=== PATIENT | female | born 1970 | race Caucasian/White ===

== ENCOUNTER 2023-06-23 06:15 | Inpatient (IN) | payer OTHER, SELFPAY ==
[2023-06-18 08:01] VITALS: BMI 26.9
[2023-06-18 08:44] LABS: Hemoglobin 13.2 g/dL (12.0-16.0); Mean Corp Hgb Conc. 34.7 g/dL (33.0-37.0); Mean Corpuscular Hgb 32.9 pg (27.0-31.0); Mean Corpuscular Volume 94.8 fL (81.0-99.0); Mean Platelet Volume 8.9 fL (7.4-10.4); Platelet Count 249 10^3/uL (130-400); Red Blood Cell Count 4.01 10^6/uL (4.20-5.40); Red Cell Dist. Width 12.1 % (11.5-14.5); White Blood Cell Count 4.4 10^3/uL (4.8-10.8)
[2023-06-18 08:51] LABS: Glycohemoglobin (HgbA1c) 5.6 % (4.0-5.6); INR 0.92; PT 12.4 Sec (11.4-14.6)
[2023-06-18 09:04] LABS: ALT (SGPT) 12 U/L (0-35); AST (SGOT) 20 U/L (14-36); Albumin 4.1 g/dl (3.5-5.0); Alkaline Phosphatase 77 U/L (38-126); Blood Urea Nitrogen 17 mg/dl (7-17); Calcium 9.4 mg/dl (8.4-10.2); Carbon Dioxide 29 mmol/L (22-30); Chloride 101 mmol/L (98-107); Estimated Creatinine Clearance 82 ml/min; Glucose 85 mg/dl (70-99); Sodium 140 mmol/L (135-145); Total Bilirubin 0.5 mg/dl (0.2-1.3); Total Protein 6.5 g/dl (6.3-8.2); eGFR > 60.00
[2023-06-23] VITALS (15 sets, daily range): BP systolic 90–112; BP diastolic 54–74; BMI 26.9
[2023-06-23] MEDS: NORMOSOL-R 1000 IV ×3 (06:49→22:01)
[2023-06-23] MEDS: ENTEREG 12 MG PO (06:49)
[2023-06-23] MEDS: HEPARIN 5000 UNITS SC (06:49)
[2023-06-23] MEDS: TYLENOL 1000 MG PO (06:49)
--- NOTE | 2023-06-23 11:36 | W.IMMPOSTOP ---
Surgical Immed Post Op Note
-
Primary Surgeon: Danny Christianson MD
Flocculator Operator: DANIA Gallego
Pre-op Diagnosis: Recurrent sigmoid diverticulitis and right ovarian cyst
Post-op Diagnosis: Same
Procedure Performed: Robotic sigmoid resection, takedown of splenic flexure and intracorporeal anastomosis
Robotic hysterectomy and BSO by Dr. Fang
Anesthesia Type: GET
Specimen / Cultures: Sigmoid colon (suture is proximal)
Uterus and ovaries
Estimated Blood Loss: 20 cc from my portion
Complications: None
Operative Findings: Large right ovarian cyst
Short segment of chronic diverticulitis in the proximal sigmoid/distal descending colon
28mm EEA
Normal leak test
Patient's family updated.
[2023-06-23] MEDS: DILAUDID 0.5 MG IV (12:08)
[2023-06-23] MEDS: TRANEXAMIC ACID 100 IV (12:40)
[2023-06-23] MEDS: TORADOL 15 MG IV ×3 (12:44→23:53)
[2023-06-23] MEDS: TYLENOL PO (14:32)
--- NOTE | 2023-06-23 15:20 | PTCARENOTE ---
Received patient from PACU around 1320 via bed in stable condition. 5 lap sites on abdomen with surgical adhesive [employer]AIL [employer]ERK. Ecchymosis around RLQ site. No drainage. VS stable. Thigh high SCDs and TEDS on. Patient oriented to room. Call dennis in place.
[2023-06-23] MEDS: TYLENOL 650 MG PO ×3 (16:04→23:53)
[2023-06-24] MEDS: TYLENOL PO ×2 (04:00→20:21)
[2023-06-24 04:11] VITALS: BP 103/61
[2023-06-24] MEDS: TORADOL 15 MG IV ×3 (05:39→18:29)
[2023-06-24 06:00] VITALS: BMI 26.9
[2023-06-24 06:14] LABS: % Basophils 0.1 % (0-2); % Immature Granulocytes 0.3 % (0-0.5); % Lymphocytes 10.9 % (20.5-51.1); % Monocytes 8.1 % (1.7-9.3); % Neutrophils 80.6 % (42.2-75.2); Absolute Lymphocytes 0.8 10^3/uL (1.2-3.4); Absolute Monocytes 0.6 10^3/uL (0.1-0.6); Absolute Neutrophils 5.7 10^3/uL (1.4-6.5); Hematocrit 30.8 % (37.0-47.0); Mean Corp Hgb Conc. 35.7 g/dL (33.0-37.0); Mean Corpuscular Hgb 33.7 pg (27.0-31.0); Mean Corpuscular Volume 94.5 fL (81.0-99.0); Mean Platelet Volume 8.8 fL (7.4-10.4); Nucleated Red Blood Cells % 0 %; Platelet Count 222 10^3/uL (130-400); Red Blood Cell Count 3.26 10^6/uL (4.20-5.40); Red Cell Dist. Width 11.8 % (11.5-14.5); White Blood Cell Count 7.1 10^3/uL (4.8-10.8)
[2023-06-24 06:35] LABS: Blood Urea Nitrogen 11 mg/dl (7-17); Carbon Dioxide 24 mmol/L (22-30); Chloride 105 mmol/L (98-107); Estimated Creatinine Clearance 82 ml/min; Glucose 81 mg/dl (70-99); Potassium 4.1 mmol/L (3.5-5.1); Sodium 134 mmol/L (135-145); eGFR > 60.00
[2023-06-24 07:02] VITALS: BP 124/76
[2023-06-24] MEDS: NORMOSOL-R 1000 IV (07:31)
[2023-06-24] MEDS: TYLENOL 650 MG PO ×3 (09:01→18:27)
[2023-06-24] MEDS: COZAAR 50 MG PO (09:02)
[2023-06-24] MEDS: ENTEREG 12 MG PO ×2 (09:02→19:49)
--- NOTE | 2023-06-24 10:37 | W.PN.CRS1 ---
Today's Communication / Plan
-
Clears
Discontinue Tam
Repeat CBC at noon
Assessment/Plan
-
POD#1 Robotic sigmoid resection, robotic hysterectomy and BSO
1. Vital signs normal.
2. Hemoglobin is 11.0. Will recheck again at noon today given some bleeding this morning. Monitor.
3. Teds and SCDs in place for DVT prophylaxis. Will hold on Lovenox until repeat CBC later today.
4. Out of bed as tolerated.
5. Start on a clear liquid diet
6. OR pathology pending.
7. Pain medications: Toradol and Tylenol standing, Dilaudid IV as needed.
8. Discontinue Tam.
9. Discontinue IV fluids once tolerating p.o.
Subjective Data
Procedure
06/23/2023- Robotic sigmoid resection, takedown of splenic flexure and intracorporeal anastomosis
�� � � � � � � � � � � � � � � � Robotic hysterectomy and BSO by Dr. Fang
Subjective Data
Date of Service: June 24, 2023
Patient states feels well today. She walked the halls this morning. She had a bloody bowel movement x 1. She did feel lightheaded but has been feeling this way recently due to medications she is using at home. She had flatus this morning. She
denies nausea or vomiting. She denies bloating. Her pain is described as mild.
Objective Data
-
Vital Signs
Temp Pulse Resp BP Pulse Ox
98.2 F 93 20 124/76 99
06/24/23 07:02 06/24/23 07:02 06/24/23 07:02 06/24/23 07:02 06/24/23 07:02
Intake & Output
06/23/23 06/24/23 06/25/23
06:59 06:59 06:59
Intake Total 1418 / 1418
Output Total 1250 / 1250
Balance 168 / 168
Intake:
Oral fluids 108 / 108
IV fluids (Total) 1310 / 1310
Normosol-R 1,000 ml @ 100 mls/ 60 / 60
hr IV .Q10H [facility] Rx#:[id number]
TA 100 / 100
norm 50 / 50
Output:
Urine, Tam 1250 / 1250
Lab Results
06/24/23 05:14
Physical Exam
-
General: No Acute Distress and AOx3
Abdomen: Soft, Non Distended and Tender (Over right lower quadrant incision, mild)
Skin: Warm and Dry
Incision: Clear, Dry, Intact
[2023-06-24 11:08] VITALS: BP 111/66
--- NOTE | 2023-06-24 11:10 | CM ---
Reviewed the chart notes and spoke with the patient at the bedside. The patient resides with her spouse in a two story home with one step to enter. The patient reports no DME/VN/SNF in the past. The patient confirmed her pharmacy of choice is the
[facility]. [address] [place]. The patient anticipates being discharged to home to day. The patient's spouse will provide transportation to home. CM continues to be available to patient/family and is monitoring medical plan for needs at
discharge.
Plan: Discharge to home with no anticipated needs.
[2023-06-24 11:50] LABS: % Basophils 0.3 % (0-2); % Immature Granulocytes 0.3 % (0-0.5); % Lymphocytes 14.6 % (20.5-51.1); % Monocytes 6.4 % (1.7-9.3); % Neutrophils 78.4 % (42.2-75.2); Absolute Lymphocytes 1.2 10^3/uL (1.2-3.4); Absolute Monocytes 0.5 10^3/uL (0.1-0.6); Absolute Neutrophils 6.2 10^3/uL (1.4-6.5); Hematocrit 29.6 % (37.0-47.0); Hemoglobin 10.6 g/dL (12.0-16.0); Mean Corp Hgb Conc. 35.8 g/dL (33.0-37.0); Mean Corpuscular Hgb 32.8 pg (27.0-31.0); Mean Corpuscular Volume 91.6 fL (81.0-99.0); Mean Platelet Volume 8.5 fL (7.4-10.4); Nucleated Red Blood Cells % 0 %; Platelet Count 212 10^3/uL (130-400); Red Blood Cell Count 3.23 10^6/uL (4.20-5.40); Red Cell Dist. Width 11.9 % (11.5-14.5); White Blood Cell Count 7.9 10^3/uL (4.8-10.8)
[2023-06-24 16:06] VITALS: BP 112/65
[2023-06-24] MEDS: NORMOSOL-R IV (18:28)
[2023-06-24] MEDS: MYLICON 80 MG PO (20:05)
[2023-06-24 23:10] VITALS: BP 98/61
[2023-06-25] MEDS: TORADOL 15 MG IV ×2 (00:06→05:37)
[2023-06-25] MEDS: TYLENOL 650 MG PO ×3 (00:06→12:08)
[2023-06-25] MEDS: FLUSH (NSS) 2 FLUSH IV ×2 (00:07→05:39)
[2023-06-25] MEDS: TYLENOL PO (05:27)
[2023-06-25 06:00] VITALS: BMI 26.6
[2023-06-25 06:14] LABS: % Basophils 0.2 % (0-2); % Eosinophils 0.6 % (0-6); % Immature Granulocytes 0.4 % (0-0.5); % Lymphocytes 22.4 % (20.5-51.1); % Monocytes 8.4 % (1.7-9.3); Absolute Lymphocytes 1.1 10^3/uL (1.2-3.4); Absolute Monocytes 0.4 10^3/uL (0.1-0.6); Absolute Neutrophils 3.3 10^3/uL (1.4-6.5); Hemoglobin 10.1 g/dL (12.0-16.0); Mean Corp Hgb Conc. 34.8 g/dL (33.0-37.0); Mean Corpuscular Hgb 32.9 pg (27.0-31.0); Mean Corpuscular Volume 94.5 fL (81.0-99.0); Mean Platelet Volume 8.8 fL (7.4-10.4); Nucleated Red Blood Cells % 0 %; Platelet Count 196 10^3/uL (130-400); Red Blood Cell Count 3.07 10^6/uL (4.20-5.40); White Blood Cell Count 4.8 10^3/uL (4.8-10.8)
[2023-06-25 06:39] LABS: Blood Urea Nitrogen 9 mg/dl (7-17); Calcium 8.4 mg/dl (8.4-10.2); Carbon Dioxide 30 mmol/L (22-30); Chloride 106 mmol/L (98-107); Estimated Creatinine Clearance 82 ml/min; Glucose 87 mg/dl (70-99); Potassium 4.6 mmol/L (3.5-5.1); Sodium 136 mmol/L (135-145); eGFR > 60.00
[2023-06-25 07:06] VITALS: BP 120/70
[2023-06-25] MEDS: ENTEREG 12 MG PO (08:33)
[2023-06-25] MEDS: COZAAR 50 MG PO (08:33)
--- NOTE | 2023-06-25 10:19 | W.PN.CRS1 ---
Today's Communication / Plan
-
Low residue
Possible DC later today
Assessment/Plan
-
POD#2 Robotic sigmoid resection,� robotic hysterectomy and BSO
1.� Vital signs normal.
2.� Hemoglobin remains stable at 10.1.
3.� Teds and SCDs in place for DVT prophylaxis.� Lovenox for DVT prophylaxis.
4.� Out of bed as tolerated.
5.� Tolerating a full liquid diet. Advance diet to low residue.
6.� OR pathology pending.
7.� Pain medications: Toradol and Tylenol standing, Dilaudid IV as needed.
8.� Possible discharge later today if tolerating low residue diet. All discharge instructions discussed with patient and all questions answered. I will check in with patient later this afternoon to see if she is up for being discharged.
Subjective Data
Procedure
06/23/2023- Robotic sigmoid resection, takedown of splenic flexure and intracorporeal anastomosis
�� � � � � � � � � � � � � � � � Robotic hysterectomy and BSO by Dr. Fang
Subjective Data
Date of Service: June 25, 2023
The patient states she has had no further bleeding with bowel movements. She has no nausea or vomiting. She is sore but her pain is controlled. She has no issues with urination. She has been out of bed. She has flatus.
Objective Data
-
Vital Signs
Temp Pulse Resp BP Pulse Ox
98.7 F 79 19 120/70 98
06/25/23 07:06 06/25/23 07:06 06/25/23 07:06 06/25/23 07:06 06/25/23 07:06
Intake & Output
06/24/23 06/25/23 06/26/23
06:59 06:59 06:59
Intake Total 1418 / 1418 1100 / 1100
Output Total 1250 / 1250 1680 / 1680
Balance 168 / 168 -580 / -580
Intake:
Oral fluids 108 / 108 600 / 600
IV fluids (Total) 1310 / 1310 500 / 500
Normosol-R 1,000 ml @ 100 mls/ 60 / 60
hr IV .Q10H [facility] Rx#:[id number]
TA 100 / 100
norm 50 / 50
Output:
Urine, Tam 1250 / 1250 550 / 550
Urine, Voided 1130 / 1130
Lab Results
06/25/23 05:33
06/25/23 05:33
Physical Exam
-
General: No Acute Distress and AOx3
Abdomen: Soft, Non Distended and Tender (Mild around incisions)
Skin: Warm and Dry
Incision: Clear, Dry, Intact
[2023-06-25] MEDS: TORADOL IV (12:08)
--- NOTE | 2023-06-25 13:38 | W.DS.TRANS ---
DC Summary - Photographic Printer
-
Discharge Instructions:
Sleep Apnea Risk Low
Discharge Diagnosis/Procedures Robotic sigmoid resection, robotic hysterectomy
and bilateral salpingo-oophorectomy.
Diet Low Residue
Activity No strenuous activity
Additional Activity No lifting over 10 pounds
Driving Restrictions No driving for 1 week
Bathing Restrictions OK to Shower
Wound Care Allow glue to naturally fall off. Do not pick
at incisions.
Instructions: Low Fiber Diet
Stand-Alone Forms:
Changes to Home Medications: Yes
Discharge Medications:
DC Medications w/original date entered in [facility]
losartan 50 mg tablet 50 mg PO DAILY Blood Pressure 04/16/23
oxycodone 5 mg tablet 5 mg PO Q6H PRN Pain #20 tabs 06/25/23
Home Medication Changes
oxycodone 5 mg tablet 5 mg PO Q6H PRN Pain #20 tabs 06/25/23
Pending Results: Yes
Additional Pending Results:
OR pathology
--- NOTE | 2023-06-25 13:53 | CM ---
Patient has been medically cleared for discharge to home with no additional skilled services. Family will transport home.
== END 2023-06-25 14:43 | disposition home or self-care (01) | DRG 742 ==
LOC: 2 SOUTH 06:15
PROVIDERS: Obstetrics & Gynecology; Physician Assistant; ADMITTING PHYSICIAN Surgery; FAMILY PHYSICIAN Internal Medicine
PROC: 0UT7FZZ Resection of Bilateral Fallopian Tubes, Via Natural or Artificial Opening With Percutaneous Endoscopic Assistance (ICD-10-PCS; 2023-06-23)
PROC: 0UT9FZZ Resection of Uterus, Via Natural or Artificial Opening With Percutaneous Endoscopic Assistance (ICD-10-PCS; 2023-06-23)
PROC: 8E0W8CZ Robotic Assisted Procedure of Trunk Region, Via Natural or Artificial Opening Endoscopic (ICD-10-PCS; 2023-06-23)
PROC: 8E0W4CZ Robotic Assisted Procedure of Trunk Region, Percutaneous Endoscopic Approach (ICD-10-PCS; 2023-06-23)
PROC: 0DTN4ZZ Resection of Sigmoid Colon, Percutaneous Endoscopic Approach (ICD-10-PCS; 2023-06-23)
PROC: 0DJD8ZZ Inspection of Lower Intestinal Tract, Via Natural or Artificial Opening Endoscopic (ICD-10-PCS; 2023-06-23)
DX: N83.201 Unspecified ovarian cyst, right side (principal); K57.32 Diverticulitis of large intestine without perforation or abscess without bleeding; N73.6 Female pelvic peritoneal adhesions (postinfective); I10 Essential (primary) hypertension; Z88.1 Allergy status to other antibiotic agents; D69.1 Qualitative platelet defects; Z98.891 History of uterine scar from previous surgery
CPT/HCPCS: 88307; 36415; 80048; 80053; 83036; 85025; 85027; 85610; 85730; 86850; 86900; 86901; J1335

== ENCOUNTER 2023-10-09 16:50 | Emergency (ER) | payer OTHER, SELFPAY ==
[2023-10-09 16:53] VITALS: BP 146/87
[2023-10-09 17:12] LABS: % Basophils 0.5 % (0-2); % Eosinophils 1.6 % (0-6); % Immature Granulocytes 0.4 % (0-0.5); % Lymphocytes 22.4 % (20.5-51.1); % Monocytes 8.3 % (1.7-9.3); % Neutrophils 66.8 % (42.2-75.2); Absolute Eosinophils 0.1 10^3/uL (0-0.7); Absolute Lymphocytes 1.2 10^3/uL (1.2-3.4); Absolute Monocytes 0.5 10^3/uL (0.1-0.6); Absolute Neutrophils 3.7 10^3/uL (1.4-6.5); Hematocrit 34.1 % (37.0-47.0); Hemoglobin 12.3 g/dL (12.0-16.0); Mean Corp Hgb Conc. 36.1 g/dL (33.0-37.0); Mean Corpuscular Hgb 32.5 pg (27.0-31.0); Mean Platelet Volume 8.3 fL (7.4-10.4); Nucleated Red Blood Cells % 0 %; Platelet Count 229 10^3/uL (130-400); Red Blood Cell Count 3.79 10^6/uL (4.20-5.40); Red Cell Dist. Width 11.9 % (11.5-14.5); White Blood Cell Count 5.5 10^3/uL (4.8-10.8)
[2023-10-09 17:27] LABS: ALT (SGPT) 12 U/L (0-35); AST (SGOT) 24 U/L (14-36); Albumin 4.7 g/dl (3.5-5.0); Alkaline Phosphatase 79 U/L (38-126); Blood Urea Nitrogen 15 mg/dl (7-17); Calcium 9.4 mg/dl (8.4-10.2); Carbon Dioxide 25 mmol/L (22-30); Chloride 105 mmol/L (98-107); Glucose 87 mg/dl (70-99); Potassium 4.1 mmol/L (3.5-5.1); Sodium 140 mmol/L (135-145); Total Bilirubin 0.4 mg/dl (0.2-1.3); Total Protein 7.1 g/dl (6.3-8.2); eGFR > 60.00
--- NOTE | 2023-10-09 18:07 | ED.GENMED ---
History of Present Illness
General
Chief Complaint: Abdominal Symptoms
Source: patient
Exam Limitations: none
Time Seen by Provider: 10/09/23 17:50
Nursing documentation reviewed up to this point in time: agreed with
Travel History
Have you had any contact with someone who has COVID-19?: No
Do you have any symptoms of coronavirus? Fever > 100 degrees, chills, cough, shortness of breath, sore throat, loss of taste or smell, muscle aches, or headache?: No
History of Present Illness
History of Present Illness:
53 yo female with history of HTN, diverticulitis, sigmoid bowel resection and hysterectomy concurrently 06/2023, presents stating she's felt bloated for the past several days, had 2 soft regular sized bowel movements that were bloody today. She
notified Dr. Christianson's [facility] and told to come here for evaluation. Denies fever/chills, denies pain but the bloating is significant and it makes her short of breath.
She finished a Z-Franco on 10/03 for cough/bronchitis. On 10/01 she had 1 episode of explosive diarrhea. On 10/04 she started bloating.
Past History
Past History
ED Past Medical History: Other (Diverticulitis, ovarian cyst)
ED Past Surgical History: Other
Social History
Tobacco: Non-smoker
Alcohol: Other
Drug: None
Personal: Other
Living: with family
Employment: Employed
Family History
Family History: Other
Review of Systems
Review of Systems
Allergies reviewed?: Yes
All Other Systems: ROS reviewed and negative except as documented in HPI and ROS
Constitutional: Denies fever or fatigue
Respiratory: Denies trouble breathing
Cardiac: Denies chest pain
ABD/GI: Reports bloody stools and black stools; Denies abdominal pain (Feels bloated), nausea, vomiting, diarrhea or anorexia
: Denies dysuria or difficulty voiding
Musculoskeletal: Reports no symptoms
Skin: Reports no symptoms
Neurological: Reports no symptoms
Phy Exam
Physical Exam
Physical Exam:
GENERAL: No acute distress. A&Ox3.
CONSTITUTIONAL: Afebrile.
EYES: Clear, conjunctivae normal
ENMT: moist mucus membranes, Pharynx nl
RESPIRATORY: Regular respirations, nonlabored, lungs clear.
CARDIOVASCULAR: Regular rate and rhythm, no murmurs, no rubs.
GI: Soft, nontender, distended, normal BS
MUSCULOSKELETAL: Moves with ease. Well perfused.
SKIN: Warm, dry, pink
PSYCH: Normal mood and affect. Well kept, interactive and appropriate
NEUROLOGIC: Awake, alert and oriented. No focal neurological deficits
Course
Orders/Labs/Results
Orders:
Orders
10/09/23 17:03
CMP [Comprehensive Metabolic Panel] Urgent
Complete Blood Count/With Diff Urgent
10/09/23 18:06
Iohexol [Omnipaque] See Protocol PO NOW STA
10/09/23 18:07
CT Abd/pel W Iv And Oral Contr Urgent
Comment:
Reason For Exam: bloating, bloody stools
Abnormal Lab Results
10/09/23
17:03
RBC 3.79 L 10^6/uL
(4.20-5.40)
Hct 34.1 L %
(37.0-47.0)
MCH 32.5 H pg
(27.0-31.0)
10/09/23 17:03
10/09/23 17:03
Vital Signs
Initial and Last Documented VS:
Initial Vital Signs
Temp Pulse Resp BP Pulse Ox
98.3 F 102 18 146/87 100
10/09/23 16:53 10/09/23 16:53 10/09/23 16:53 10/09/23 16:53 10/09/23 16:53
Last Documented Vital Signs
Temp Pulse Resp BP Pulse Ox
98.3 F 78 18 134/87 100
10/09/23 16:53 10/09/23 20:54 10/09/23 20:54 10/09/23 20:54 10/09/23 20:54
Hydrodynamicist consulted with Physician
Hydrodynamicist consulted with physician?: Yes
Name of Physician Consulted: Latasha
MDM/Problems Addressed
Differential Diagnosis Includes:
diverticulitis. GI bleed
MDM/Problems Addressed:
53 yo female with history of HTN, diverticulitis, sigmoid bowel resection and hysterectomy concurrently 06/2023, presents stating she's felt bloated for the past several days, had 2 soft regular sized bowel movements that were bloody today. She
notified Dr. Christianson's [facility] and told to come here for evaluation. Denies fever/chills, denies pain but the bloating is significant and it makes her short of breath.
She finished a Z-Franco on 10/03 for cough/bronchitis. On 10/01 she had 1 episode of explosive diarrhea. On 10/04 she started bloating.
6:00 p.m.
CBC: No clinically significant abnormality
CMP: Normal
9:00 p.m.
One small formed dark stool: hematests positive
CT abd/pelvis with IV and PO contrast radiology report read: IMPRESSION:
Overall limited evaluation of large bowel predominantly unopacified with oral contrast with moderate volume scattered colonic stool. No intestinal obstruction, free air or gross pericolonic inflammatory changes.
Grossly unremarkable sigmoid colonic anastomosis.
Subcentimeter low-attenuation right renal lesion too small to characterize.
Mild hepatomegaly.
Pt offered admission to [facility] or go home since she is very stable, labs unremarkable, no significant bleeding now, she opts to go home and will return if worse.
She is very in tune to return symptoms and is very comfortable going home
Case discussed with Dr. Lovell who agrees with assessment and plan
Chronic conditions affecting care: HTN and Other (diverticulitis)
*Critical Care Note
Total Time (30-74mins, 75-104mins- exclusive of procedures): Not Applicable
ED Attending Note
-
Portions of this chart may have been created with voice recognition software.� Occasional wrong word or��sound alike� substitutions may have occurred due to the inherent limitations of voice recognition software.
Discharge Plan
Departure
Patient Disposition: Home (Routine Discharge)
Date of Disposition: 10/09/23
Time of Disposition: 21:49
Patient with high blood pressure during this ER visit?: No
Condition: Good
Discharge Problem:
Passage of bloody stools
Instructions: Bloody Stools, Adult ED, Abdominal Pain
Prescriptions:
No Action
losartan 50 mg tablet
50 mg PO DAILY
oxycodone 5 mg tablet
5 mg PO Q6H PRN (Reason: Pain) Qty: 20 0RF
Referrals:
Braeden Christianson MD [Active] - Next open appointment
Mendez Walden MD [Family Provider] -
Activity Restrictions/Additional Instructions:
As we discussed, return here immediately for worsening abdominal bloating, pain, vomiting, worsening bloody stools, feeling lightheaded, faint or feeling sicker in any way. Otherwise contact Dr. Christianson after the for follow up.
Interventions
Interventions:
*Risk Screen - Suicide Last Done: 10/09/23 17:59
*General Assessment Last Done: 10/09/23 17:59
*Neglect/Abuse Screening Last Done: 10/09/23 17:59
*Nursing Disposition Last Done: 10/09/23 22:01
SN-Adijmi-Pbyndckgnd Assessment Last Done: 10/09/23 17:59
Discharge Date and Time
Discharge Date/Time: 10/09/23 22:02
Print Language: ITALIAN
[2023-10-09] MEDS: OMNIPAQUE 50 ML PO (18:15)
[2023-10-09 20:54] VITALS: BP 134/87
== END 2023-10-09 22:02 | disposition home or self-care (01) ==
LOC: EMR 16:50
PROVIDERS: EMERGENCY PHYSICIAN Emergency Medicine; FAMILY PHYSICIAN Internal Medicine
DX: K92.1 Melena (principal); I10 Essential (primary) hypertension
CPT/HCPCS: 74177; 80053; 85025; 99284; 99285; Q9967

== ENCOUNTER → 2023-11-10 06:29 | Day surgery (SDC) | payer OTHER, SELFPAY | LOC: GI 06:29 | PROVIDERS: ATTENDING PHYSICIAN Surgery | DX: Z12.11 Encounter for screening for malignant neoplasm of colon (principal); K62.5 Hemorrhage of anus and rectum; K63.89 Other specified diseases of intestine; K63.3 Ulcer of intestine; Z86.010 Personal history of colon polyps | CPT/HCPCS: 45382 ==

== ENCOUNTER 2024-12-27 13:15 | Emergency (ER) | payer OTHER, SELFPAY ==
[2024-12-27 13:22] VITALS: BP 153/108
[2024-12-27 13:43] LABS: Hematocrit 38.4 % (37.0-47.0); Hemoglobin 13.5 g/dL (12.0-16.0); Mean Corp Hgb Conc. 35.2 g/dL (33.0-37.0); Mean Corpuscular Volume 93.7 fL (81.0-99.0); Nucleated Red Blood Cells % 0 %; Platelet Count 197 10^3/uL (130-400); Red Cell Dist. Width 12.1 % (11.5-14.5)
[2024-12-27 13:54] LABS: ALT (SGPT) 11 U/L (0-35); AST (SGOT) 20 U/L (14-36); Albumin 4.6 g/dl (3.5-5.0); Alkaline Phosphatase 65 U/L (38-126); Blood Urea Nitrogen 13 mg/dl (7-17); Calcium 9.0 mg/dl (8.4-10.2); Carbon Dioxide 27 mmol/L (22-30); Chloride 105 mmol/L (98-107); Glucose 94 mg/dl (70-99); Potassium 4.3 mmol/L (3.5-5.1); Sodium 135 mmol/L (135-145); Total Protein 6.9 g/dl (6.3-8.2); eGFR > 60.00
--- NOTE | 2024-12-27 16:37 | ED.GENMED ---
History of Present Illness
General
Chief Complaint: Allergic Reaction
Time Seen by Provider: 12/27/24 16:20
History of Present Illness
History of Present Illness:
Patient presents to the emergency department with diffuse skin rash. Unclear etiology. It is itchy. No known exposure. Started yesterday after power washing outside at her parents house. She endorses getting multiple bug bites.
Past History
Past History
ED Past Medical History: Other (Diverticulitis, ovarian cyst)
ED Past Surgical History: Other
Social History
Tobacco: Non-smoker
Alcohol: Other
Drug: None
Personal: Other
Living: with family
Employment: Employed
Family History
Family History: Other
Phy Exam
Physical Exam
Physical Exam:
GENERAL APPEARANCE: NAD, well developed/ well nourished
EYES lids/conjunctiva normal
EARS/NOSE/THROAT Mucous membranes moist, uvula midline without oral pharyngeal erythema, exudate or swelling
HEAD/NECK normocephalic atraumatic, neck is supple.
RESPIRATORY respiratory effort normal, speaks in full sentences, no accessory muscle use. Lungs clear to auscultation without rhonchi, wheezes, rales
CARDIAC Regular rate and rhythm, no edema.
ABDOMINAL Soft, ND/NT. No pulsatile masses on exam, rebound tenderness, Shelby sign or pain over Mcburney's point.
MUSCLES/EXTREMITIES No abnormal range of motion, no swelling.
SKIN diffuse urticarial rash, no skin sloughing
NEUROLOGICAL Speech is clear and appropriate. Normal level of consciousness. 5/5 strength in all extremities.
PSYCH Normal mood and affect. Judgement/competence is appropriate
Course
Orders/Labs/Results
Orders:
Orders
12/27/24 13:28
Complete Blood Count/With Diff Urgent
Comprehensive Metabolic Panel Urgent
Abnormal Lab Results
12/27/24
13:28
WBC 3.8 L 10^3/uL
(4.8-10.8)
RBC 4.10 L 10^6/uL
(4.20-5.40)
MCH 32.9 H pg
(27.0-31.0)
Absolute Lymphs (auto) 1.0 L 10^3/uL
(1.2-3.4)
12/27/24 13:28
12/27/24 13:28
Vital Signs
Initial and Last Documented VS:
Initial Vital Signs
Temp Pulse Resp BP Pulse Ox
98.3 F 85 16 153/108 100
12/27/24 13:22 12/27/24 13:22 12/27/24 13:22 12/27/24 13:22 12/27/24 13:22
Last Documented Vital Signs
Temp Pulse Resp BP Pulse Ox
98.3 F 85 16 153/108 100
12/27/24 13:22 12/27/24 13:22 12/27/24 13:22 12/27/24 13:22 12/27/24 16:39
*Pulse Oximetry
SaO2: 100
Oxygen Mode of Delivery: Room air
Patient hypoxic: no
*Critical Care Note
Total Time (30-74mins, 75-104mins- exclusive of procedures): Not Applicable
ED Attending Note
ED Attending Note
ED Attending Note:
Patient with diffuse urticarial rash, unclear etiology. Possibly some exposure yesterday outside. Will treat with a course of corticosteroids. Return precautions given. No evidence of anaphylaxis or severe allergic reaction.
-
Portions of this chart may have been created with voice recognition software.� Occasional wrong word or��sound alike� substitutions may have occurred due to the inherent limitations of voice recognition software.
Discharge Plan
Departure
Patient Disposition: Home (Routine Discharge)
Date of Disposition: 12/27/24
Time of Disposition: 16:39
Patient with high blood pressure during this ER visit?: Yes
Discharge Problem:
Urticaria
Prescriptions:
New
prednisone 20 mg tablet
20 mg PO DAILY 7 Days Qty: 9 0RF
Rx Instructions:
7 day taper
day 1 - 50 mg
day 2 - 40 mg
day 3 - 30 mg
day 4- 20 mg
day 5 - 20 mg
day 6 - 10 mg
day 7 10 mg
No Action
losartan 50 mg tablet
50 mg PO DAILY
oxycodone 5 mg tablet
5 mg PO Q6H PRN (Reason: Pain) Qty: 20 0RF
Interventions
Interventions:
*Risk Screen - Suicide Last Done: 12/27/24 13:23
*Neglect/Abuse Screening Last Done: 12/27/24 13:23
*Nursing Disposition Last Done: 12/27/24 17:05
ED-Skin Assessment Last Done: 12/27/24 17:05
Discharge Date and Time
Discharge Date/Time: 12/27/24 17:05
Print Language: LIBERIAN
== END 2024-12-27 17:05 | disposition home or self-care (01) ==
LOC: EMR 13:15
PROVIDERS: Student in an Organized Health Care Education/Training Program; EMERGENCY PHYSICIAN Emergency Medicine; FAMILY PHYSICIAN Internal Medicine
DX: L50.9 Urticaria, unspecified (principal); R03.0 Elevated blood-pressure reading, without diagnosis of hypertension
CPT/HCPCS: 99283; 80053; 85025

== ENCOUNTER 2025-03-13 06:19 | Day surgery (SDC) | payer OTHER, SELFPAY | END 2025-03-13 14:00 | disposition home or self-care (01) | LOC: GI 06:19 | PROVIDERS: ATTENDING PHYSICIAN Internal Medicine | DX: R12 Heartburn (principal) | CPT/HCPCS: 43239; 88305; 88342 ==